=== PATIENT | female | born 1975 | race Caucasian/White ===

== ENCOUNTER 2021-10-10 15:41 | Emergency (ER) | payer SELFPAY ==
[2021-10-10] MEDS ORDERED: Sodium Chloride 0.9% 10 ML Syringe FLUSH PRN (16:17)
[2021-10-10] MEDS ORDERED: Sodium Chloride 0.9% 1,000 ML IV STA (16:18)
== END 2021-10-10 16:35 ==
LOC: JD.ED 15:41
DX: R10.9 Unspecified abdominal pain (principal); Z53.21 Procedure and treatment not carried out due to patient leaving prior to being seen by health care provider

== ENCOUNTER 2022-03-12 17:24 | Emergency (ER) | payer OTHER | END 2022-03-12 22:42 | disposition home or self-care (01) | LOC: JD.ED 17:24 | DX: F10.129 Alcohol abuse with intoxication, unspecified (principal); Z88.0 Allergy status to penicillin; Y90.1 Blood alcohol level of 20-39 mg/100 ml | CPT/HCPCS: 36415; 80053; 80307; 85025; 85610; 85730; 99284 ==

== ENCOUNTER 2022-03-22 11:32 | Emergency (ER) | payer OTHER ==
[2022-03-22] MEDS ORDERED: Pantoprazole 40 MG in Sodium Chloride 0.9% 100 ML IV ONE (14:21)
[2022-03-22] MEDS ORDERED: Metoclopramide 10 MG/2 ML SDV IVPUSH ONE (14:21)
[2022-03-22] MEDS ORDERED: Pantoprazole 80 MG in Sodium Chloride 0.9% 100 ML IV ONE (14:25)
[2022-03-22] MEDS ORDERED: Dextrose 5%-Lactated Ringers 1,000 ML IV SCH ×3 (14:30→16:00)
[2022-03-22] MEDS ORDERED: Haloperidol Lactate 5 MG/ML SDV IVPUSH ONE (14:55)
[2022-03-22] MEDS ORDERED: Haloperidol Lactate 5 MG/ML SDV ONE (14:57)
[2022-03-22] MEDS ORDERED: Pantoprazole 40 MG Vial IV SCH (15:00)
[2022-03-22] MEDS ORDERED: Thiamine 200 MG/2 ML MDV IVPUSH ONE (15:04)
[2022-03-22] MEDS: LORazepam 2 MG/ML SDV IV PRN ×2 (15:15→20:54)
[2022-03-22 15:22] LABS: CORONAVIRUS COVID-19 NAA NEGATIVE (NEGATIVE)
[2022-03-22] MEDS ORDERED: Magnesium Sulfate/Water 4 GM in Premix Bag 1 BAG IV ONE (15:45)
[2022-03-22] MEDS ORDERED: cefTRIAXone 2 GM in Sodium Chloride 0.9% 100 ML IV ONE (16:11)
[2022-03-22] MEDS: Potassium Chloride 10 MEQ in Premix Bag 1 BAG IV SCH ×2 (16:57→18:00)
[2022-03-22] MEDS ORDERED: Octreotide 500 MCG in Sodium Chloride 0.9% 499 ML IV SCH (17:45)
== END 2022-03-22 20:50 ==
LOC: JD.ED 11:32
DX: K92.2 Gastrointestinal hemorrhage, unspecified (principal); K70.30 Alcoholic cirrhosis of liver without ascites; F10.239 Alcohol dependence with withdrawal, unspecified; E87.6 Hypokalemia; E83.42 Hypomagnesemia; Z88.0 Allergy status to penicillin; Z20.822 Contact with and (suspected) exposure to COVID-19
CPT/HCPCS: 0241U; 36415; 71045; 80053; 80306; 80307; 81003; 82140; 82977; 83605; 83690; 83735; 83880; 85025; 85610; 85730; 93005; 96361; 96365; 96366; 96368; 96375; 96376; 99285; C9113; J0696; J1630; J2060; J2354; J2765; J3411; J3475; J3480; J7040; J7121